=== PATIENT | male | born 1985 | race Caucasian/White ===

== ENCOUNTER 2017-02-26 12:05 | Inpatient (IN) | payer BC, OTHER ==
[~2017-02-26] VITALS: Ht 182.9 cm; Wt 72.6 kg
[2017-02-26] MEDS ORDERED: CLONIDINE HCL 0.1 MG TABLET PO PRN (17:15)
[2017-02-26] MEDS ORDERED: DICYCLOMINE HCL 20 MG TABLET PO PRN (17:15)
[2017-02-26] MEDS ORDERED: diphenhydrAMINE 50 MG CAPSULE PO PRN (17:15)
[2017-02-26] MEDS ORDERED: ONDANSETRON 4 MG/2 ML VIAL IM PRN (17:15)
[2017-02-26] MEDS ORDERED: MAG HYDROX/AL HYDROX/SIMETH 30 ML LIQUID UDC PO PRN (17:15)
[2017-02-26] MEDS ORDERED: LOPERAMIDE HCL 2 MG CAPSULE PO PRN ×2 (17:15)
[2017-02-26] MEDS ORDERED: BUPRENORPHINE HCL 2 MG TAB.SUBL SL PRN (17:15)
[2017-02-26] MEDS ORDERED: METHOCARBAMOL 750 MG TABLET PO PRN (17:15)
[2017-02-26] MEDS ORDERED: MIRALAX 17 GM POWD.PACK PO PRN (17:15)
[2017-02-26] MEDS ORDERED: ONDANSETRON ODT 4 MG TAB.RAPDIS SL PRN (17:15)
[2017-02-26] MEDS ORDERED: ACETAMINOPHEN 325 MG TABLET PO PRN (17:15)
[2017-02-26] MEDS ORDERED: MAGNESIUM HYDROXIDE 30 ML LIQUID UDC PO PRN (17:15)
--- NOTE | 2017-02-26 17:40 | NUR ---
PREADMISSION NOTE Pt is a 31 year old male admitted on 02/26/17 for Heroin (smoking) and Methamphetamines (smoking). Pt denies any food or drug allergies on fall precautions, regular diet. Pts initial vitals are BP: 102/66 Pulse:100 RR19, Temp. 98.7 O2% 98 and pain 5/10 on his left leg. Pt denies being admitted to a hospital in the past 30 days. denies any past medical history. Pt reported Using heroin smoking 0.5gram daily for the past 6 months his last use was today at 0300 pt smoked 0.2 grams. pt also reported using meth smoking 0.2 grams daily for 6 months last used today 0.1grams at 1000. Pt reported past treatments that he attended most recent being [facility] 7 months ago his longest period or sobriety is 1 year from [id number]. pt denies having a PCP. Pt stated he has surgery done on his left leg in 2008 at [facility] by Dr. Waterman. pt has a wound on his left leg which was caused by an object falling on it. Infection control is to assess and evaluate pt. MD aware of all pt information all admitting order placed will endorse the remaining of admission to night shift supervisor nurse.
[2017-02-26] MEDS ORDERED: SULF1TAB48 PO (18:04)
[2017-02-26] MEDS ORDERED: CEPH500C2 PO (18:05)
[2017-02-26] MEDS ORDERED: IBUP-66 PO (18:06)
[2017-02-26 18:07] LABS: BASOPHILS # (AUTO) 0.1 K/uL (0.0-8.0); BASOPHILS % (AUTO) 0.7 % (0.0-2.0); EOSINOPHILS # (AUTO) 0.1 K/uL (0.0-0.7); HEMATOCRIT 44.6 % (40-50); HEMOGLOBIN 14.5 G/DL (14.0-18.0); LYMPHOCYTES # (AUTO) 1.9 K/UL (0.8-4.8); LYMPHOCYTES % (AUTO) 13.1 % (20.5-51.5); MEAN CORPUSCULAR HEMOGLOBIN 28.8 UUG (27.0-31.0); MEAN CORPUSCULAR HGB CONC 33 g/dL (32.0-37.0); MEAN CORPUSCULAR VOLUME 88.5 FL (82.0-92.0); MONOCYTES % (AUTO) 6.9 % (0.0-11.0); NEUTROPHILS # (AUTO) 11.1 K/UL (1.8-8.9); NEUTROPHILS % (AUTO) 78.3 % (38.5-71.5); PLATELET COUNT (AUTO) 303 K/UL (150-450); RED BLOOD CELL COUNT(AUTO) 5.04 MIL/UL (4.7-6.1); WHITE BLOOD COUNT (AUTO) 14.2 K/UL (4.0-11.2)
[2017-02-26 18:11] LABS: ALANINE AMINOTRANSFERASE 54 U/L (16-63); ALKALINE PHOSPHATASE 115 U/L (50-136); ASPARTATE AMINOTRANSFERASE 19 U/L (15-37); BILIRUBIN,TOTAL 0.3 mg/dL (0.2-1.0); CARBON DIOXIDE 27 mmol/L (21-32); CHLORIDE 99 mmol/L (98-107); CREATININE 1.1 mg/dL (0.6-1.3); GLUCOSE 83 mg/dL (74-106); MAGNESIUM 2.1 mg/dL (1.8-2.4); POTASSIUM 4.1 mmol/L (3.5-5.1); TOTAL PROTEIN, SERUM 7.1 g/dL (6.4-8.2); UREA NITROGEN, BLOOD 18 mg/dL (7-18)
[2017-02-26 18:21] LABS: THYROID STIMULATING HORMONE 0.816 mIU/mL (0.358-3.740)
[2017-02-26 18:23] LABS: ETHANOL < 3 MG/DL (0-0)
[2017-02-26] MEDS ORDERED: MULT-1121 PO (18:37)
[2017-02-26 18:38] LABS: *AMPHETAMINE, URINE POSITIVE (NEGATIVE); *BARBITURATE, URINE NEGATIVE (NEGATIVE); *CANNABINOID, URINE NEGATIVE (NEGATIVE); *COCCAINE, URINE NEGATIVE (NEGATIVE); *OPIATE, URINE POSITIVE (NEGATIVE); *PHENCYCLIDINE SCREEN,URINE NEGATIVE (NEGATIVE)
--- NOTE | 2017-02-26 19:17 | NUR ---
PHARMACY CLINICAL NOTES ( VANCOMYCIN DOSING) Subjective: 31 YO male admitted with DX of cellulitis. MD ordered Zosyn 3.375 gm q8h as well Objective: BUN/SCR 18/1.1, WBC 14.2, dosing wt 73 kg, Crcl 101.72 ml/min Assessment/Plan: Will dose vancomycin as 1500 mg q12h , estimated peak of 43 and trough of 16, will order trough prior to 4th dose. will continue to monitor and adjust as necessary.
[2017-02-26 20:00] VITALS: BP 105/56
--- NOTE | 2017-02-26 20:30 | NUR ---
IV Insertion 22 gauge IV inserted on left hand. Line flushed with NS and is patent. Pt tolerated the insertion.
[2017-02-26] MEDS: VANCOMYCIN IV 1,500 MG in IV DEXTROSE 5% 500 ML IV SCH (20:47)
[2017-02-26] MEDS ORDERED: GABAPENTIN 300 MG CAPSULE PO SCH (21:00)
--- NOTE | 2017-02-26 21:30 | NUR ---
START OF SHIFT Received pre-admission report from day shift nurse. Pt is lying in bed watching TV. He is a 31 yo male admitted to [facility] at 1815 on 02/26/17. He is A&O x4 and ambulatory with crutches due to a wound on the left ankle which occurred when an object fell on it. He reports NKA, is full code status, and on a regular diet. Pt does not appear intoxicated and answers all questions appropriately. Vital signs are B/P 105/56, HR 94, RR 18,18 O2 sat 100%, T 98.5, pain 4/10 left ankle. Pt is 6'0" and weighs 160lb. He has a PMH of left leg fracture with surgery. Lung sounds clear, PERRLA, brisk capillary refill, bowel sounds present , he has a wound to the left ankle. History of Use 1. Heroin oral inhalation 0.6 grams per day for 6 months. Last used 0.2 grams on 02/26/17 at 0300. He has used heroin for 8 years. 2. Methamphetamine oral inhalation 0.2 grams per day for 6 months. Last used 0.1 gram on 02/26/17 at 1000. Treatment History 1) [facility] [place] 07/2016 for 14 days 2) [address] [place] [address] 12/2011 for 6 months Pt smokes 10 cigarettes per day. Symptoms when he doesn't use include" chills, anxiety, agitation, restlessness, stomach upset, and insomnia, zone out, visual effects, dehydration". His longest period of sobriety was one year in 2011. He decided to come to treatment today because "I'm losing control". He does not have a primary care physician. Pt reports that he has recently been living in his car. COWS on admission is 6. Pt went to the ER at [facility] 12 days ago for treatment of his ankle wound. MD aware of patients admission. Orders in place. Pt was oriented to the unit and his room. He was educated regarding use of the call light and all questions answered. Fall precautions in place. Bed is down with call light in reach.
[2017-02-26 22:50] VITALS: BP_SYST 94; BP_SYST 95; BP_DIAS 50; BP_DIAS 55
[2017-02-26] MEDS: HYDROXYZINE PAMOATE 25 MG CAPSULE PO PRN (22:56)
[2017-02-26] MEDS: IBUPROFEN 600 MG TABLET PO PRN (22:56)
--- NOTE | 2017-02-26 22:57 | NUR ---
PRN Motrin and Vistaril administration Pt reports left ankle pain 6/10, feeling anxious, and unable to relax to fall asleep. B/P 94/55 and HR 103. PRN Motrin and Vistaril administered.
[2017-02-26] MEDS: PIPERACILLIN/TAZOBACTAM/D5W 3.375 G in PREMIXED 1 EACH IV SCH (23:09)
[2017-02-27] VITALS: BP_SYST 94; BP_SYST 95; BP_DIAS 50; BP_DIAS 55
[2017-02-27 04:00] VITALS: BP 119/57
[2017-02-27] MEDS: PIPERACILLIN/TAZOBACTAM/D5W 3.375 G in PREMIXED 1 EACH IV SCH ×3 (06:24→23:42)
--- NOTE | 2017-02-27 07:25 | NUR ---
END OF SHIFT 327 Report provided to day shift nurse. Pt is lying in bed resting. He is a 31 yo male admitted to [facility] on 02/26 for opiate dependence. 22 gauge IV inserted to the left hand. He is is ordered IV abx for treatment of wound to the left ankle which was obtained prior to admission. X-rays taken last night per MD orders. Pt is NPO since midnight for procedure to left ankle today. PRN Motrin and Vistaril administered. Taper ordered to start today based on COWS score. Last COWS 2. He drank 769mL and slept for 7 hours. Fall precautions in place. Bed is down with call light in reach.
[2017-02-27 08:00] VITALS: BP 137/65
--- NOTE | 2017-02-27 08:15 | NUR ---
START OF SHIFT NOTE Received pt this AM AOx4. Patient presents fatigued. Patient states he feels dizzy congested, sweaty, and has body aches and stomach cramps. PRN Vistaril and Ibuprofen given during overnight houseperson. Patient slept 7 hours last night. Patient is to start on a 3 day Subutex taper this morning. COWS 12 at 0800. Patient has a Left ankle wound occurred SOFTWARE SUPPORT SPECIALIST and is receiving IV abx. Patient has 22 g IV placed on left hand. Patient has been NPO since midnight. Will provide safe and supportive environment. Patient currently sleeping in bed with bed locked and in lowest position and call ta within reach. Will continue to monitor.
[2017-02-27] MEDS: BUPRENORPHINE HCL 2 MG TAB.SUBL SL SCH ×2 (08:55→20:24)
[2017-02-27] MEDS: MULTIVITAMINS,THERAPEUTIC TABLET PO SCH (08:56)
[2017-02-27] MEDS: GABAPENTIN 300 MG CAPSULE PO SCH ×3 (08:56→20:24)
[2017-02-27] MEDS: DOCUSATE SODIUM 250 MG CAPSULE PO SCH (08:56)
[2017-02-27] MEDS ORDERED: 3 DAY TAPER BUPRENORPHINE -SERENITY PROTOCOL SL PRN (09:00)
[2017-02-27] MEDS ORDERED: TUBERCULIN,PURIF.PROT.DERIV. 5 TU/0.1 ML TEST ID ONE (09:00)
[2017-02-27] MEDS: VANCOMYCIN IV 1,500 MG in IV DEXTROSE 5% 500 ML IV SCH ×2 (09:05→20:23)
[2017-02-27 12:00] VITALS: BP 106/62
--- NOTE | 2017-02-27 13:57 | NUR ---
Clinical pharmacy note-Vancomycin dosing per pharmacy Subjective: To continue Vancomycin on this 31 year old male patient for L foot cellulitis/abscess(history of substance abuse) Objective: BUN 18(02/26) Scr 1.1(02/26) WBC 14.2(02/26) Temp 98.5 Assessment/Plan: Will continue Vancomycin 1500mg IV every 12 hrs(third dose due tonight at 2100) and draw trough by 4th dose(ordered tomorrow at 0830) for expected trough around 16. Will monitor renal function closely to adjust the dose if needed. Will follow daily.
[2017-02-27 16:00] VITALS: BP 128/62
--- NOTE | 2017-02-27 18:37 | NUR ---
END OF SHIFT NOTE Patient started on 3 day Subutex taper this morning. Patient is pleasant with flat affect and congruent mood. Patient continues on antibiotic treatment for left ankle wound via IV. Patient has a 22 g IV to his left hand that is patent and secured. No PRNs. Patient was taken off NPO per Dr. Martin with no need for procedure. Last COWS 8. Patient slept most of shift. No PRNs needed during shift as detox meds are effective. Patient currently sleeping with bed locked and in lowest position and call ta within reach. All needs met. All safety measures in place. Will pass shift report to oncoming nurse.
--- NOTE | 2017-02-27 19:50 | NUR ---
START OF SHIFT Received report from day shift nurse. Pt is lying in bed resting. He is a 31 yo male admitted to [facility] on 02/26 for opiate dependence. He is A&O x4 and ambulatory. NKA, full code status, and on a regular diet. He has a 22 gauge IV inserted to the left hand. IV abx ordered for treatment of a wound to the left ankle which was obtained prior to admission. He has a PMH of left leg fracture with surgical repair in 2008. On admission he admitted to using heroin 0.6 grams per day and methamphetamine 0.2 grams per day. He started a 3 day Subutex taper today. He is diaphoretic, with stomach cramps and chills. Fall precautions in place. Bed is down with call light in reach. Addendum: 02/28/17 at 0135 by LIMA KULKARNI RN Pt ambulates with crutches and uses a wheel chair as needed for longer distances due to left leg wound.
[2017-02-27 20:00] VITALS: BP 103/61
[2017-02-27] MEDS: LACTOBACILLUS RHAMNOSUS GG 1 EACH CAPSULE PO SCH (20:23)
--- NOTE | 2017-02-27 20:26 | NUR ---
PRN Bentyl administration Pt reports stomach cramps r/t opiate withdrawal. PRN Bentyl administered.
[2017-02-27] MEDS ORDERED: LIDOCAINE 1%-EPI 1:100,000 20 ML VIAL TP ONE (21:15)
[2017-02-27] MEDS ORDERED: LIDOCAINE HCL 1% 20 ML VIAL ONE (21:23)
[2017-02-27] MEDS ORDERED: LIDOCAINE 1%-EPI 1:100,000 20 ML VIAL ONE (21:24)
--- NOTE | 2017-02-27 21:26 | NUR ---
PRN Bentyl reassessment PRN Bentyl effective. Pt reports relief of stomach cramps.
--- NOTE | 2017-02-27 21:45 | NUR ---
I&D performed Dr. Laurent performed I&D of left ankle. Lidocaine administered prior. Dressing applied. Pt tolerated the procedure.
[2017-02-27] MEDS: IBUPROFEN 600 MG TABLET PO PRN (22:35)
--- NOTE | 2017-02-27 22:36 | NUR ---
PRN Motrin administration Pt reports left ankle pain 04/17. PRN Motrin administered.
--- NOTE | 2017-02-27 23:36 | NUR ---
PRN Motrin reassessment PRN Motrin effective. Pt is lying comfortably in bed resting with eyes closed. Respirations even and unlabored. Safety measures in place.
[2017-02-28] VITALS: BP 108/50
--- NOTE | 2017-02-28 | NUR ---
0000 COWS deferred COWS ordered Q4H while awake. Vital signs obtained.
[2017-02-28 04:00] VITALS: BP 124/60
[2017-02-28] MEDS: IBUPROFEN 600 MG TABLET PO PRN (05:52)
[2017-02-28] MEDS: PIPERACILLIN/TAZOBACTAM/D5W 3.375 G in PREMIXED 1 EACH IV SCH ×3 (05:52→22:19)
--- NOTE | 2017-02-28 05:55 | NUR ---
PRN Motrin administration Pt c/o left ankle pain 02/15. PRN Motrin administered.
--- NOTE | 2017-02-28 07:20 | NUR ---
END OF SHIFT Report provided to day shift nurse. Pt is lying in bed resting. He is a 31 yo male admitted to [facility] on 02/26 for opiate dependence. He is A&O x4 and ambulatory. NKA, full code status, and on a regular diet. He has a 22 gauge IV on the left hand. IV abx ordered for treatment of a wound to the left ankle which was obtained prior to admission. Pt ambulates with crutches and uses a wheel chair as needed. He has a PMH of left leg fracture with surgical repair in 2008. On admission he admitted to using heroin 0.6 grams per day and methamphetamine 0.2 grams per day. He started a 3 day Subutex taper on 02/27. Dr. Laurent perfored I&D of the wound at the bedside last night. PRN Bentyl and Motrin x2 administered. He drank 1900mL and slept for 8 hours. Fall precautions in place. Bed is down with call light in reach.
--- NOTE | 2017-02-28 07:30 | NUR ---
Start of Shift Report from the night nurse: pt is a s 31 y/o male her for Opiate r/t Heroin 0.6g & Methamphetamine 0.2g smoked daily smoked daily for 6 months; 3 day SUbutex taper started 02/27. Pt is a full code, regular diet, NKA, fall precautions ordered. V/S stable. #22g left hand with IV ATbx r/t Skin is not intact with I&d on left leg; endorsed to me to f/u with wound care orders. HHx: smoker and leg fx. Left leg wound culture done. PRN Motrin and Bentyl given last night. Endorsed to me to f/u for pain management. Last COWS 6. Pt is in room asleep. Will cont. to monitor the pt.
[2017-02-28 08:00] VITALS: BP 108/62
[2017-02-28 08:06] LABS: HEPATITIS B SURFACE AG Negative (Negative)
[2017-02-28] MEDS: LACTOBACILLUS RHAMNOSUS GG 1 EACH CAPSULE PO SCH ×2 (09:37→21:06)
[2017-02-28] MEDS: BUPRENORPHINE HCL 2 MG TAB.SUBL SL SCH ×3 (09:37→21:06)
[2017-02-28] MEDS: DOCUSATE SODIUM 250 MG CAPSULE PO SCH (09:37)
[2017-02-28] MEDS: MULTIVITAMINS,THERAPEUTIC TABLET PO SCH (09:37)
[2017-02-28] MEDS: GABAPENTIN 300 MG CAPSULE PO SCH ×3 (09:38→21:06)
[2017-02-28] MEDS: VANCOMYCIN IV 1,500 MG in IV DEXTROSE 5% 500 ML IV SCH ×2 (10:30→20:05)
[2017-02-28] MEDS: KETOROLAC TROMETHAMINE 30 MG INJ IM PRN (10:30)
--- NOTE | 2017-02-28 10:30 | NUR ---
New Orders, PRN Medication Administration Pt is in room in pain 05/18 on left leg wound s/p I&D procedure done last night; I notified Dr. Martin and new order for Toradol 30mg IM Q6H PRN severe pain and given as ordered w/n parameters, educated pt on actions and SE's. Will reassess in 1H.
--- NOTE | 2017-02-28 11:30 | NUR ---
Reassessment Pt denies pain 0/10; Toradol is effective. Will cont. to monitor the pt.
[2017-02-28 12:00] VITALS: BP 111/60
--- NOTE | 2017-02-28 14:11 | NUR ---
New Orders-Modified Vanco IVP New orders for modified Vanco 1500mg IV Q12H starting at 2000pm tonpanfilo. 02/28/17 Last trough this morning 13.4.
--- NOTE | 2017-02-28 15:54 | NUR ---
Clinical pharmacy note-Vancomycin dosing per pharmacy Subjective: To continue Vancomycin on this 31 year old male patient for L foot cellulitis/abscess(history of substance abuse) Objective: BUN 18(02/26) Scr 1.1(02/26) WBC 14.2(02/26) Temp 98.4 Vancomycin trough 13.4 at 0704(2 hrs prior to next dose) Assessment/Plan: Will change Vancomycin 1500mg IV to every 10 hrs(third dose due tomorrow at 0600) and draw trough by 4th dose(ordered tomorrow at 1530) for expected trough around 15. Will monitor renal function closely to adjust the dose if needed. Will follow daily.
[2017-02-28 16:00] VITALS: BP 118/57
--- NOTE | 2017-02-28 19:01 | NUR ---
End of Shift Report to the night nurse: pt is a s 31 y/o male her for Opiate r/t Heroin 0.6g & Methamphetamine 0.2g smoked daily smoked daily for 6 months; 3 day Subutex taper started 02/27. Pt is a full code, regular diet, NKA, fall precautions ordered. V/S stable. #22g left hand with IV ATbx r/t Skin is not intact with I&D on left leg with outer DD change given and will endorse to night nurse to f/u with ID re: internal DD & last trough 13.4 with new orders for trough tomorrow afternoon. HHx: smoker and leg fx. Left leg wound culture results are negative. New order for Toradol PRN given at 1030am this morning. Last COWS 4.
--- NOTE | 2017-02-28 19:30 | NUR ---
Start of Shift Note: Report received from day shift nurse. Pt is a 31M, admitted for Heroin Dependence. Pt was in the room upon the start of shift. Pt is AOx4 without s/s of acute distress noted. Pt is full code, on regular diet, and on fall precautions. Pt noted with NKA. Pt has hx of L leg fx with sx. Pt currently on 3-day Subutex taper to manage withdrawal symptoms. Pt has 22g IV on left hand and currently receiving Vanco IV and Zosyn IV for L ankle wound post I&D. Per day shift nurse, pts last COWS was 4 at 1600. Bed in lowest position. Side rails up x2. Call light functioning and within reach. All needs attended and met. Will continue to monitor.
[2017-02-28 20:00] VITALS: BP 99/63
[2017-03-01] VITALS: BP 108/66
[2017-03-01 04:00] VITALS: BP 125/59
[2017-03-01] MEDS: PIPERACILLIN/TAZOBACTAM/D5W 3.375 G in PREMIXED 1 EACH IV SCH ×2 (05:04→14:02)
[2017-03-01] MEDS: VANCOMYCIN IV 1,500 MG in IV DEXTROSE 5% 500 ML IV SCH (05:57)
--- NOTE | 2017-03-01 07:11 | NUR ---
End of Shift Note: Pt is 31M, admitted for Heroin Dependence. Pt is AOx4 without s/s of acute distress. Pt is full code, on regular diet, and on fall precautions. Pt noted with NKA. Pt has hx of L leg fx with sx. Pt currently on 3-day Subutex taper to manage withdrawal symptoms. Pt slept for 9 hours. Respirations even and unlabored. Last COWS score was 3. No PRN medications given during the shift. Pt has 22g IV on left hand and currently receiving Vanco IV and Zosyn IV for L ankle wound post I&D. No N/V noted during the shift. Bed in lowest position. Side rails up x2. Call light functioning and within reach. All needs attended and met. Will endorse to day shift nurse.
--- NOTE | 2017-03-01 07:30 | NUR ---
Start of Shift Report from the night nurse with update: pt is a s 31 y/o male her for Opiate r/t Heroin 0.6g & Methamphetamine 0.2g smoked daily smoked daily for 6 months; 3 day Subutex taper started 02/27. Pt is a full code, regular diet, NKA, fall precautions ordered. V/S stable. #22g left hand with IV ATbx r/t Skin is not intact with I&d on left leg; endorsed to me to f/u with handbell choir director re: DD change needed. HHx: smoker and leg fx. Left leg wound culture done. No PRN meds given last night. Last COWS 3. Pt is in room asleep. Will cont. to monitor the pt.
[2017-03-01 08:00] VITALS: BP 127/61
[2017-03-01 08:02] LABS: BASOPHILS # (AUTO) 0.1 K/uL (0.0-8.0); BASOPHILS % (AUTO) 0.7 % (0.0-2.0); EOSINOPHILS # (AUTO) 0.3 K/uL (0.0-0.7); EOSINOPHILS % (AUTO) 3.2 % (0.0-7.0); LYMPHOCYTES # (AUTO) 1.5 K/UL (0.8-4.8); MEAN CORPUSCULAR HEMOGLOBIN 28.6 UUG (27.0-31.0); MEAN CORPUSCULAR HGB CONC 33 g/dL (32.0-37.0); MONOCYTES # (AUTO) 0.6 K/UL (0.1-1.30); MONOCYTES % (AUTO) 7.3 % (0.0-11.0); NEUTROPHILS # (AUTO) 6.2 K/UL (1.8-8.9); NEUTROPHILS % (AUTO) 71.8 % (38.5-71.5); PLATELET COUNT (AUTO) 245 K/UL (150-450)
[2017-03-01 08:25] LABS: WHITE BLOOD COUNT (AUTO) 8.7 K/UL (4.0-11.2)
[2017-03-01 08:26] LABS: HEMATOCRIT 37.5 % (40-50); HEMOGLOBIN 12.2 G/DL (14.0-18.0); RED BLOOD CELL COUNT(AUTO) 4.26 MIL/UL (4.7-6.1)
[2017-03-01 08:56] LABS: MAGNESIUM 1.8 mg/dL (1.8-2.4); PHOSPHOROUS 2.5 mg/dL (2.5-4.9); POTASSIUM 4.7 mmol/L (3.5-5.1)
[2017-03-01] MEDS ORDERED: BUPRENORPHINE HCL 2 MG TAB.SUBL SL SCH (09:00)
[2017-03-01 09:01] LABS: CREATININE 1.4 mg/dL (0.6-1.3)
--- NOTE | 2017-03-01 10:15 | NUR ---
Late & PRN Medication Administration Pt returned back from smoking with anxiety, restless arms, and c/o of muscle tension; Dr. Mar present and directed to give PRN Clonidine 0.1mg and Robaxin 750mg PO given as ordered. Late Medications administration since pt is out smoking. Will reassess in 1H.
[2017-03-01] MEDS: LACTOBACILLUS RHAMNOSUS GG 1 EACH CAPSULE PO SCH ×2 (10:16→21:34)
[2017-03-01] MEDS: MULTIVITAMINS,THERAPEUTIC TABLET PO SCH (10:16)
[2017-03-01] MEDS: DOCUSATE SODIUM 250 MG CAPSULE PO SCH (10:16)
[2017-03-01] MEDS: GABAPENTIN 300 MG CAPSULE PO SCH ×3 (10:17→21:33)
[2017-03-01] MEDS ORDERED: LIDOCAINE 1%-EPI 1:100,000 20 ML VIAL TP ONE (11:15)
--- NOTE | 2017-03-01 11:15 | NUR ---
Reassessment Pt is in room with very nervous discussing wound care tx today and states decreased muscle tension present; Robaxin is effective and Clonidine is somewhat effective at this time. Will prep for wound care and cont. to monitor the pt.
--- NOTE | 2017-03-01 11:30 | NUR ---
PHOTORESIST PRINTER WOUND TREATMENT ORDERS CLARIFIED WITH SURGEON DR HUGHES. PATIENT ALSO TO FOLLOW UP IN OUT PATIENT [facility] FOR WOUND CARE AND RECONSTRUCTION WITH DR HUGHES AND PATIENT TO CALL FOR APPT [phone]. PT TO FOLLOW UP IN [address] HUGHES WITH ANY QUESTIONS AT [phone].
[2017-03-01] MEDS: KETOROLAC TROMETHAMINE 30 MG INJ IM PRN (11:35)
[2017-03-01] MEDS ORDERED: LIDOCAINE-MPF 1% 5 ML AMPUL MC PRN (11:45)
--- NOTE | 2017-03-01 11:54 | NUR ---
Wound Care & PRN Medication Administration PRN Toradol 30mg IM given before Wound Care per formed by Dr. Laurent with MD removing soiled gauze, cleansed with NS and Chlorhexidine swab, applied damp gauze, covered with ABD pad and wrapped with Kerlix. New orders from Dr. Laurent that pt is ok for him to be d/c'd tomorrow and new orders in process for d/c instructions s/p I&D and for daily wound care. Will reassess in 1H. Addendum: 03/01/17 at 1401 by JORGE BRAVO RN PRN Xylocaine MPF applied by Dr. Laurent during irrigation with anesthesia
[2017-03-01 12:00] VITALS: BP 105/59
--- NOTE | 2017-03-01 13:45 | NUR ---
PRN Medication Administration Reassessment Pt is in room very anxious, clammy and fatigued with c/o feeling anxious after wound care tx and denies pain 0/10 on left leg wound; PRN Toradol is effective and Vistaril 50mg given PO as ordered. Will reassess in 1H.
[2017-03-01] MEDS: HYDROXYZINE PAMOATE 25 MG CAPSULE PO PRN (14:06)
--- NOTE | 2017-03-01 14:45 | NUR ---
Reassessment Pt is in room taking a nap and no anxiety or pain present; Vistaril is effective. Will cont. monitor the pt.
[2017-03-01 16:00] VITALS: BP 113/58
--- NOTE | 2017-03-01 16:13 | NUR ---
Clinical pharmacy note-Vancomycin dosing per pharmacy Subjective: To continue Vancomycin on this 31 year old male patient for L foot cellulitis/abscess(history of substance abuse) Objective: BUN 8 Scr 1.4 WBC 8.7 Temp 98.4 Vancomycin trough 20.3 TODAY @1530 Assessment/Plan: Re-dosed vanco to 1250mg q10hrs for new expected trough of 15.6 and draw trough by 4th dose(not ordered yet). Will monitor renal function closely to adjust the dose if needed. Will follow daily.
--- NOTE | 2017-03-01 16:16 | NUR ---
New Orders-Modified Vanco 03/01/17 Vanco trough 20.3 high with new orders per pharmacy of modified decreased dose Vanco 1250mg IVPB Q10H scheduled with next dose at 1700H.
[2017-03-01] MEDS: VANCOMYCIN IV 1,250 MG in IV DEXTROSE 5% 500 ML IV SCH (17:27)
[2017-03-01] MEDS ORDERED: BACLOFEN 20 MG TABLET PO PRN (18:15)
[2017-03-01] MEDS ORDERED: ACETAMINOPHEN ES 500 MG TABLET PO PRN (18:15)
--- NOTE | 2017-03-01 18:56 | NUR ---
End of Shift Report to the night nurse: pt is a s 31 y/o male her for Opiate r/t Heroin 0.6g & Methamphetamine 0.2g smoked daily smoked daily for 6 months; 3 day Subutex taper started 02/27. HHx: smoker and leg fx. Pt is a full code, regular diet, NKA, fall precautions ordered. V/S stable. #22g left hand with IV ATbx r/t Skin is not intact with I&D on left leg with did the first wet-to-dry dressing change with Xylocaine-MPF & new orders for the dressing change non-invasive to be done by RN daily and PRN so will endorse to night nurse for DD needed with written orders. Vanco dose modified with lower dose r/t trough 20.3 today & started during my shift and still running. Zosyn IVPB given as ordered. PRN Clonidine, Toradol and Vistaril given during my shift. Last COWS 3.
--- NOTE | 2017-03-01 19:15 | NUR ---
Start of Shift Note: Patient is a 31 y/o male admitted on 02/26/17 for Opiate dependence. Patient with past medical history of leg fracture in 2008. Patient denies seizure history. Patient is on a regular diet with no known food and drug allergies. Full Code status. Fall precaution. Patient is on a modified Subutex taper. Patient has IV access 22 gauge on left hand patent and intact. Patient Patient has open wound on left leg post I&D. Dressing dry and intact. Patient is on IV ATB Zosyn and Vanco. Last COWS is 3. Pt was given PRN Clonidine, Toradol, Robaxin & Vistaril during day shift. Patient is alert & oriented x4. Patient is lying in bed and appears comfortable. No shortness of breath noted. Respiration even & unlabored. Abdomen soft & non-distended. Bowel sounds active in all four quadrants. No nausea/vomiting noted. Patient complain of sweating, chills, 5/10 body aches & stomach cramps. Pateint denies SI/HI. Safety precautions are in place. Bed locked in lowest position. Both side rails up. Call light within pt's reach. Will continue to monitor patient.
[2017-03-01 20:00] VITALS: BP 112/69
[2017-03-01] MEDS: BUPRENORPHINE HCL 2 MG TAB.SUBL SL SCH (21:33)
[2017-03-02] VITALS: BP 120/59
[2017-03-02] MEDS: PIPERACILLIN/TAZOBACTAM/D5W 3.375 G in PREMIXED 1 EACH IV SCH ×4 (00:02→21:51)
[2017-03-02] MEDS: VANCOMYCIN IV 1,250 MG in IV DEXTROSE 5% 500 ML IV SCH ×2 (03:25→13:34)
[2017-03-02 04:00] VITALS: BP 97/58
[2017-03-02 07:19] LABS: *CREATININE,URINE 81.2 mg/dL (30-125)
--- NOTE | 2017-03-02 07:36 | NUR ---
End of Shift Note: Patient is a 31 y/o male admitted on 02/26/17 for Opiate dependence. Patient with past medical history of leg fracture in 2008. Patient denies seizure history. Patient is on a regular diet with no known food and drug allergies. Full Code status. Fall precaution. Patient is on a modified Subutex taper. Patient has IV access 22 gauge on left hand patent and intact. Patient has open wound on left leg post I&D. Dressing dry and intact. Patient is on IV ATB Zosyn and Vanco. Patient had an uneventful night. Patient remained stable and vitals remains WNL. Pt compliant with treatment plan. Pt slept for a total of 8 hours. Pt consumed 650ml of fluids. Voided 2x with no bowel movement. All needs attended & met. Safety precautions are in place. Will endorse pt to day shift nurse.
--- NOTE | 2017-03-02 07:40 | NUR ---
Start of Shift Report received Patient is a 31 y/o male admitted on 02/26/17 for Opiate dependence. Pt full code regular diet on fall precautions denies any food or drug allergies. Pt is on a modified Subutex taper tolerating well. Patient with past medical history of leg fracture in 2008. Patient denies seizure history. Patient has IV access 22 gauge on left hand patent and intact. Patient has open wound on left leg post I&D. Dressing dry and intact. Patient is on IV ATB Zosyn and Vanco. Last COWS is 5. Pt did not receive any PRN medications last night. Patient is alert & oriented x4. Patient is lying in bed and appears comfortable. No shortness of breath noted. Respiration even & unlabored at 18. Pt slept a total of 8 hours. Safety precautions are in place. Bed locked in lowest position. Both side rails up. Call light within pt's reach. Will continue to monitor patient.
[2017-03-02 08:00] VITALS: BP 100/68
[2017-03-02 08:24] LABS: BASOPHILS # (AUTO) 0.1 K/uL (0.0-8.0); BASOPHILS % (AUTO) 0.7 % (0.0-2.0); EOSINOPHILS # (AUTO) 0.2 K/uL (0.0-0.7); EOSINOPHILS % (AUTO) 3.1 % (0.0-7.0); HEMATOCRIT 35.7 % (40-50); HEMOGLOBIN 11.9 G/DL (14.0-18.0); LYMPHOCYTES # (AUTO) 1.7 K/UL (0.8-4.8); LYMPHOCYTES % (AUTO) 21.6 % (20.5-51.5); MEAN CORPUSCULAR HEMOGLOBIN 29.2 UUG (27.0-31.0); MEAN CORPUSCULAR HGB CONC 33 g/dL (32.0-37.0); MEAN CORPUSCULAR VOLUME 87.8 FL (82.0-92.0); MONOCYTES # (AUTO) 0.7 K/UL (0.1-1.30); MONOCYTES % (AUTO) 9.1 % (0.0-11.0); NEUTROPHILS % (AUTO) 65.5 % (38.5-71.5); PLATELET COUNT (AUTO) 240 K/UL (150-450); RED BLOOD CELL COUNT(AUTO) 4.06 MIL/UL (4.7-6.1); WHITE BLOOD COUNT (AUTO) 7.7 K/UL (4.0-11.2)
[2017-03-02 09:25] LABS: MAGNESIUM 1.8 mg/dL (1.8-2.4); PHOSPHOROUS 4.1 mg/dL (2.5-4.9)
[2017-03-02 09:26] LABS: CREATININE 1.4 mg/dL (0.6-1.3)
[2017-03-02] MEDS: LACTOBACILLUS RHAMNOSUS GG 1 EACH CAPSULE PO SCH ×2 (09:45→20:56)
[2017-03-02] MEDS: DOCUSATE SODIUM 250 MG CAPSULE PO SCH (09:45)
[2017-03-02] MEDS: BUPRENORPHINE HCL 2 MG TAB.SUBL SL SCH (09:45)
[2017-03-02] MEDS: GABAPENTIN 300 MG CAPSULE PO SCH ×3 (09:45→20:56)
[2017-03-02] MEDS: MULTIVITAMINS,THERAPEUTIC TABLET PO SCH (09:45)
[2017-03-02 12:00] VITALS: BP 120/67
--- NOTE | 2017-03-02 12:45 | NUR ---
PHARMACY COMMUNICATION Pharmacy was contacted in regards to Vanco trough levels. His level was 20.3 on 03/01/17 at around 1500. Pt has not had his levels drawn this morning. Notified pharmacy about the results, Ladonna from pharmacy approved on administration of the Vanco at 1300 and requested the automobile service writer to notify nightman about having the blood drawn to check the level again at 2230.
[2017-03-02] MEDS ORDERED: Gabapentin PO (13:15)
[2017-03-02] MEDS ORDERED: HYDR-3895 PO (13:15)
[2017-03-02] MEDS ORDERED: METH-33 PO (13:15)
[2017-03-02] MEDS ORDERED: CLON0.1T14 PO (13:15)
[2017-03-02] MEDS ORDERED: LACT1CAP57 PO (13:15)
[2017-03-02] MEDS ORDERED: DICY20TA28 PO (13:15)
[2017-03-02 16:00] VITALS: BP 125/78
--- NOTE | 2017-03-02 16:07 | NUR ---
IV SITE CHANGE/INFILTRATION Pts left hand IV got infiltrated, IV removed with the catheter intact, a cold pack was applied on left hand, pt had a new peripheral IV started on his Right hand 22G insertion successful after first attempt pt tolerated well IV flushes with ease blood return noted patent and intact. pt is in stable condition will continue to monitor.
--- NOTE | 2017-03-02 16:54 | NUR ---
Clinical pharmacy note-Vancomycin dosing per pharmacy Subjective: To continue Vancomycin on this 31 year old male patient for L foot cellulitis/abscess(history of substance abuse) Objective: BUN 8 (03/02) Scr 1.4 (03/02) WBC 7.7 Temp 98.8 Assessment/Plan: Continued on vancomycin 1250mg q10hrs for new expected trough of 15.6 and draw trough by 4th dose(due tonight at 2230). RN aware to endorse to nightshift for level and hold if >20. Will check level tomorrow am and adjust as appropriate. Will monitor renal function closely to adjust the dose if needed. Will follow daily.
[2017-03-02 18:23] LABS: *AMPHETAMINE, URINE NEGATIVE (NEGATIVE); *BARBITURATE, URINE NEGATIVE (NEGATIVE); *CANNABINOID, URINE NEGATIVE (NEGATIVE); *COCCAINE, URINE NEGATIVE (NEGATIVE); *OPIATE, URINE NEGATIVE (NEGATIVE); *PHENCYCLIDINE SCREEN,URINE NEGATIVE (NEGATIVE)
[2017-03-02] MEDS: NEOMY/BACITRAC/POLYMI OINT 28.35 GM TUBE TOP SCH (18:23)
[2017-03-02] MEDS ORDERED: SULF1TAB3 PO (18:30)
--- NOTE | 2017-03-02 19:15 | NUR ---
End Of Shift 327 Report given to restaurant shift leader nurse. Patient is a 31 y/o male admitted on 02/26/17 for Opiate dependence. Pt full code regular diet on fall precautions denies any food or drug allergies. Pt is on a modified Subutex taper tolerating well. Patient with past medical history of leg fracture in 2008. Patient denies seizure history. Pts IV on the left hand got infiltrated another IV was started on right hand 22G saline lock patent and intact. Patient has open wound on left leg post I&D. Dressing dry and intact. Patient is on IV ATB Zosyn and Vanco . Last COWS is 4 at 1600. Pt did not receive any PRN medications. Patient is alert & oriented x4. . Detox medication effective at reducing withdrawal symptoms. Patient encouraged to attend group therapies/sessions to learn new coping skills to recent relapse, patient denies SI/HI. Pt had an intake of 2491ml and voids x5 no BM. Safety measures in place, call light within reach, side rails up x2, bed locked and in low position. Endorsed to day shift nurse.
--- NOTE | 2017-03-02 19:15 | NUR ---
Start of Shift Note: Patient is a 31 y/o male admitted on 02/26/17 for Opiate dependence. Patient with past medical history of leg fracture in 2008. Patient denies seizure history. Patient is on a regular diet with no known food and drug allergies. Full Code status. Fall precaution. Patient completed her taper and he is scheduled to be discharge tomorrow. Urine drug screen collected and resulted. Patient has IV access 22 gauge on right hand patent and intact. Patient has open wound on left leg post I&D. Dressing dry and intact. Patient is on IV ATB Zosyn and Vanco. Last COWS is 4. No PRN medications were given during day shift. Patient is alert & oriented x4. Patient is lying in bed and appears comfortable. No shortness of breath noted. Respiration even & unlabored. Abdomen soft & non-distended. Bowel sounds active in all four quadrants. No nausea/vomiting noted. Patient complain of sweating, chills. No body aches noted. Pateint denies SI/HI. Safety precautions are in place. Bed locked in lowest position. Both side rails up. Call light within pt's reach. Will continue to monitor patient.
[2017-03-02 20:00] VITALS: BP 132/65
[2017-03-03] VITALS: BP 118/56
[2017-03-03] MEDS: VANCOMYCIN IV 1,250 MG in IV DEXTROSE 5% 500 ML IV SCH (00:02)
[2017-03-03] MEDS: PIPERACILLIN/TAZOBACTAM/D5W 3.375 G in PREMIXED 1 EACH IV SCH (06:18)
--- NOTE | 2017-03-03 07:13 | NUR ---
End of Shift Note: Patient is a 31 y/o male admitted on 02/26/17 for Opiate dependence. Patient with past medical history of leg fracture in 2008. Patient denies seizure history. Patient is on a regular diet with no known food and drug allergies. Full Code status. Fall precaution. Patient completed his Subutex taper and is scheduled to be discharge today. Urine drug screen collected and resulted. Last COWS 2. No PRN medications were given during my shift. Patient has IV access 22 gauge on right hand patent and intact. Patient has open wound on left leg post I&D. Dressing dry and intact. Patient is on IV ATB Zosyn and Vanco. Patient had an uneventful night. Patient remained stable and vitals remains WNL. Pt compliant with treatment plan. Pt slept for a total of 5 hours. Pt consumed 1511 ml of fluids. Voided 3x with no bowel movement. All needs attended & met. Safety precautions are in place. Will endorse pt to day shift nurse.
--- NOTE | 2017-03-03 07:30 | NUR ---
start of shift note: received pt from warehouse shift supervisor nurse, pt is in stable condition at this time no s/s of pain or discomfort. pt is admitted to [facility] for opiate/meth withdrawal. pt is set to discharge today will assist pt in discharging and will continue to monitor pt for any changes.
[2017-03-03] MEDS ORDERED: SULFAMETH/TRIMETH 800/160 MG TABLET PO SCH (09:00)
[2017-03-03] MEDS: LACTOBACILLUS RHAMNOSUS GG 1 EACH CAPSULE PO SCH (09:20)
[2017-03-03] MEDS: DOCUSATE SODIUM 250 MG CAPSULE PO SCH (09:20)
[2017-03-03] MEDS: MULTIVITAMINS,THERAPEUTIC TABLET PO SCH (09:20)
[2017-03-03] MEDS: GABAPENTIN 300 MG CAPSULE PO SCH (09:20)
[2017-03-03] MEDS: NEOMY/BACITRAC/POLYMI OINT 28.35 GM TUBE TOP SCH (09:21)
--- NOTE | 2017-03-03 10:11 | NUR ---
discharge note: pt left the unit in stable condition wound care rendered to left foot, instructions for f/u were verbalized and written on discharge paperwork. pt is to f/u with [facility] in 1 week from the 28 of february. pt verbalized understanding understanding. pt without withdrawal symptoms noted. treatment was rendered and taught to pt. Pt's V/S WNL.pt left with all personal belongings. pt will be transferred to [facility] via private car
== END 2017-03-03 10:11 | disposition other institution (70) | DRG 895 ==
LOC: SRC 16:35
PROVIDERS: ADMIT Internal Medicine; ATTEND Internal Medicine
PROC: HZ2ZZZZ Detoxification Services for Substance Abuse Treatment (ICD-10-PCS; principal; 2017-02-26)
PROC: 0J9R3ZZ Drainage of Left Foot Subcutaneous Tissue and Fascia, Percutaneous Approach (ICD-10-PCS; 2017-02-27)
PROC: HZ31ZZZ Individual Counseling for Substance Abuse Treatment, Behavioral (ICD-10-PCS; 2017-02-28)
DX: F11.23 Opioid dependence with withdrawal (principal); A41.9 Sepsis, unspecified organism; F15.20 Other stimulant dependence, uncomplicated; L03.116 Cellulitis of left lower limb; L02.612 Cutaneous abscess of left foot; L02.416 Cutaneous abscess of left lower limb; L97.329 Non-pressure chronic ulcer of left ankle with unspecified severity; S91.002S Unspecified open wound, left ankle, sequela; S91.302S Unspecified open wound, left foot, sequela; L08.9 Local infection of the skin and subcutaneous tissue, unspecified; X58.XXXS Exposure to other specified factors, sequela; F17.210 Nicotine dependence, cigarettes, uncomplicated; Z59.0 Homelessness
CPT/HCPCS: 36415; 73610; 73620; 80307; 80324; 80361; 82746; 83550; 83735; 84100; 84300; 84443; 85025; 85651; 86580; 86592; 86705; 86803; 87070; 87340; 87806; 97001; A4217; A4663; G6040-TC; J1885; J2543; J3370; J3490; J7060